=== PATIENT | female | born 1990 | race Caucasian/White ===

== ENCOUNTER → 2017-10-15 | Outpatient (CLI) | payer OTHER ==
--- NOTE | 2017-10-15 11:25 | MR ---
EXAMINATION TYPE: MR shoulder RT wo con DATE OF EXAM: 10/15/2017 COMPARISON: X-ray dated 09/24/2017 HISTORY: Pain in right shoulder TECHNIQUE: Multiplanar, multisequence imaging of the right shoulder is performed without contrast. FINDINGS: Exam limited by motion artifact. Bony labrum are intact. No sizable joint effusion. Bicipital tendon is well situated within the bicipital groove. There is no evidence of marrow edema or contusion. Inferior glenohumeral ligament intact. There is no evidence of impingement. Subscapularis and supraspinatus tendons have a normal appearance. Infraspinatus tendon demonstrates i ntrasubstance signal near the insertion. No through thickness tear or retraction. IMPRESSION: Correlate for mild distal infraspinatus tendinosis
== END | disposition home or self-care (01) ==
LOC: RADMRIMAIN 09:42
PROVIDERS: ATTEND Orthopaedic Surgery
DX: M25.511 Pain in right shoulder (principal)